=== PATIENT | male | born 1935 | race Caucasian/White ===

== ENCOUNTER 2016-07-19 12:48 | Observation (INO) | payer MEDICARE ==
[2016-07-19] MEDS ORDERED: SODIUM CHLORIDE 0.9% 500 ML IV ONE (12:57)
[2016-07-19] MEDS ORDERED: SODIUM CHLORIDE 0.9% 1,000 ML IV ONE (12:57)
--- NOTE | 2016-07-19 13:04 | ED ---
Altered Mental Status HPI - General Stated Complaint: Nonresponsive Time Seen by Provider: 07/19/16 12:57 Source: family, RN notes reviewed - History of Present Illness Initial Comments: This is a 80-year-old male with a history of Alzheimer's disease and MS with right-sided paralysis who is brought in by family and caregiver with the onset of decreased level of consciousness over last 1-2 hours. He had no history of diabetes he did have decrease oral intake today. No falls reported no fevers chills nausea vomiting sweats or other symptoms reported. MD Complaint: altered mental status, decreased responsiveness - Related Data Home Medications Medication Instructions Recorded Confirmed Baclofen [Lioresal] 10 mg PO BID 07/19/16 07/19/16 Cranberry Fruit Concentrate 450 mg PO DAILY 07/19/16 07/19/16 [Cranberry] Docusate [Colace] 100 mg PO DAILY PRN 07/19/16 07/19/16 LORazepam [Ativan] 0.5 mg PO TID PRN 07/19/16 07/19/16 Levothyroxine Sodium [Synthroid] 125 mcg PO DAILY 07/19/16 07/19/16 Lisinopril [Prinivil] 20 mg PO BID 07/19/16 07/19/16 Ranitidine HCl [Zantac] 300 mg PO DAILY 07/19/16 07/19/16 SILVER sulfADIAZINE CREAM 1 applic TOPICAL DAILY 07/19/16 07/19/16 [Silvadene Cream] Simvastatin [Zocor] 20 mg PO DAILY 07/19/16 07/19/16 Zinc 50 mg PO DAILY 07/19/16 07/19/16 carBAMazepine [TEGretol] 200 mg PO TID 07/19/16 07/19/16 tiZANidine [Zanaflex] 4 mg PO DAILY 07/19/16 07/19/16 Allergies Allergy/AdvReac Type Severity Reaction Status Date / Time No Known Allergies Allergy Verified 07/19/16 14:33 Review of Systems ROS Statement: Those systems with pertinent positive or pertinent negative responses have been documented in the HPI. ROS Other: All systems not noted in ROS Statement are negative. General Exam - General Exam Comments Initial Comments: This is a well-developed asthenic appearing male who was unresponsive was head lowered to the left. Limitations: altered mental status, physical limitation General appearance: obtunded Eye exam: Present: PERRL, EOMI, other (Some apparent deviation of left thigh to the left compared to the right eye.) Extremities exam: Present: normal capillary refill, other (Stigmata of right side paralysis). Absent: normal inspection, full ROM Back exam: Present: normal inspection Neurological exam: Present: altered Psychiatric exam: Present: other (Unable to evaluate) Skin exam: Present: warm, dry, intact, normal color. Absent: rash Course Vital Signs 07/19/16 07/19/16 07/19/16 12:58 13:35 14:26 Temperature 97.2 F L Pulse Rate 83 75 77 Respiratory 18 18 20 Rate Blood Pressure 139/77 161/87 156/74 O2 Sat by Pulse 95 94 L 99 Oximetry 07/19/16 15:45 Temperature 97.7 F Pulse Rate 91 Respiratory 18 Rate Blood Pressure 186/86 O2 Sat by Pulse 99 Oximetry - Reevaluation(s) Reevaluation #1: 07/19/16 13:03 I did assist nursing education consultant in place and the patient onto the emergency department stretcher from his wheelchair using a lifting device. Upon movement the patient did awaken respond. Accu-Chek was 120. Evaluation continues the patient is nonverbal Reevaluation #2: 07/19/16 16:55 Reevaluation patient reveals him to still be awake and alert not quite back to his norm per his family and caregiver. Medical Decision Making - Medical Decision Making I did discuss findings with the patient and family members patient be admitted for evaluation for syncope and elevated troponin. - Lab Data Result diagrams: 07/19/16 13:14 07/19/16 13:14 Lab Results 07/19/16 07/19/16 07/19/16 Range/Units 12:56 13:14 13:14 WBC 12.6 H (3.8-10.6) k/uL RBC 4.52 (4.30-5.90) m/uL Hgb 13.2 (13.0-17.5) gm/dL Hct 41.5 (39.0-53.0) % MCV 91.8 (80.0-100.0) fL MCH 29.2 (25.0-35.0) pg MCHC 31.9 (31.0-37.0) g/dL RDW 13.5 (11.5-15.5) % Plt Count 235 (150-450) k/uL Neutrophils % 83 % Lymphocytes % 11 % Monocytes % 4 % Eosinophils % 0 % Basophils % 1 % Neutrophils # 10.5 H (1.3-7.7) k/uL Lymphocytes # 1.4 (1.0-4.8) k/uL Monocytes # 0.5 (0-1.0) k/uL Eosinophils # 0.0 (0-0.7) k/uL Basophils # 0.1 (0-0.2) k/uL PT (9.0-12.0) sec INR (<1.1) APTT (22.0-30.0) sec Sodium (137-145) mmol/L Potassium (3.5-5.1) mmol/L Chloride (98-107) mmol/L Carbon Dioxide (22-30) mmol/L Anion Gap mmol/L BUN (9-20) mg/dL Creatinine (0.66-1.25) mg/dL Est GFR (MDRD) Af Amer (>60 ml/min/1.73 sqM) Est GFR (MDRD) Non-Af (>60 ml/min/1.73 sqM) Glucose (74-99) mg/dL POC Glucose (mg/dL) 120 H (75-99) mg/dL POC Glu Bander Operator ID Branch, Dereck Calcium (8.4-10.2) mg/dL Total Bilirubin (0.2-1.3) mg/dL AST (17-59) U/L ALT (21-72) U/L Alkaline Phosphatase (38-126) U/L Ammonia (<30) umol/L Total Creatine Kinase 31 L (55-170) U/L CK-MB (CK-2) 0.8 (0.0-2.4) ng/mL CK-MB (CK-2) Rel Index 2.6 Troponin I 0.042 H* (0.000-0.034) ng/mL Total Protein (6.3-8.2) g/dL Albumin (3.5-5.0) g/dL 07/19/16 07/19/16 07/19/16 Range/Units 13:14 13:14 13:14 WBC (3.8-10.6) k/uL RBC (4.30-5.90) m/uL Hgb (13.0-17.5) gm/dL Hct (39.0-53.0) % MCV (80.0-100.0) fL MCH (25.0-35.0) pg MCHC (31.0-37.0) g/dL RDW (11.5-15.5) % Plt Count (150-450) k/uL Neutrophils % % Lymphocytes % % Monocytes % % Eosinophils % % Basophils % % Neutrophils # (1.3-7.7) k/uL Lymphocytes # (1.0-4.8) k/uL Monocytes # (0-1.0) k/uL Eosinophils # (0-0.7) k/uL Basophils # (0-0.2) k/uL PT 10.6 (9.0-12.0) sec INR 1.1 (<1.1) APTT 23.7 (22.0-30.0) sec Sodium 144 (137-145) mmol/L Potassium 4.8 (3.5-5.1) mmol/L Chloride 108 H (98-107) mmol/L Carbon Dioxide 24 (22-30) mmol/L Anion Gap 12 mmol/L BUN 27 H (9-20) mg/dL Creatinine 1.06 (0.66-1.25) mg/dL Est GFR (MDRD) Af Amer >60 (>60 ml/min/1.73 sqM) Est GFR (MDRD) Non-Af >60 (>60 ml/min/1.73 sqM) Glucose 122 H (74-99) mg/dL POC Glucose (mg/dL) (75-99) mg/dL POC Glu Bander Operator ID Calcium 8.9 (8.4-10.2) mg/dL Total Bilirubin 0.8 (0.2-1.3) mg/dL AST 22 (17-59) U/L ALT 17 L (21-72) U/L Alkaline Phosphatase 98 (38-126) U/L Ammonia <9 (<30) umol/L Total Creatine Kinase (55-170) U/L CK-MB (CK-2) (0.0-2.4) ng/mL CK-MB (CK-2) Rel Index Troponin I (0.000-0.034) ng/mL Total Protein 7.5 (6.3-8.2) g/dL Albumin 3.6 (3.5-5.0) g/dL - EKG Data -: EKG Interpreted by Me EKG shows normal: sinus rhythm (Sinus rhythm rate of 72 first-degree AV block left axis deviation a bundle-branch block OR interval 224 QRS duration 150 QT/ QTC of 442/483 st-t wave changes) - Radiology Data Radiology results: report reviewed (I did review the imaging and reports no acute findings are seen.), image reviewed Disposition Clinical Impression: Syncope, Dementia, Elevated troponin, Dehydration Disposition: ADMITTED IP TO THIS [facility] Condition: Stable Referrals: Nonstaff,Physician [Primary Care Provider] - 1-2 days
[2016-07-19 13:07] LABS: Glucose,Whole Blood 120 mg/dL (75-99)
[2016-07-19 13:25] LABS: Basophils # (A) 0.1 k/uL (0-0.2); Basophils % (A) 1 %; CH 29.3; CHCM 32.1; Eosinophils % (A) 0 %; HCT 41.5 % (39.0-53.0); HDW 2.38; HGB 13.2 gm/dL (13.0-17.5); Luc # (Auto) 0.15; Luc % (Auto) 1; Lymphocytes # (A) 1.4 k/uL (1.0-4.8); Lymphocytes % (A) 11 %; MCH 29.2 pg (25.0-35.0); MCHC 31.9 g/dL (31.0-37.0); MCV 91.8 fL (80.0-100.0); Mean Platelet Volume 8.6; Monocytes # (A) 0.5 k/uL (0-1.0); Monocytes % (A) 4 %; Neutrophils # (A) 10.5 k/uL (1.3-7.7); Neutrophils % (A) 83 %; RBC 4.52 m/uL (4.30-5.90); RDW 13.5 % (11.5-15.5); WBC 12.6 k/uL (3.8-10.6); WBC (Perox) 12.84
--- NOTE | 2016-07-19 13:37 | CT ---
EXAMINATION TYPE: CT brain wo con DATE OF EXAM: 07/19/2016 1:31 PM COMPARISON: NONE HISTORY: Altered mental status. Unresponsiveness. CT DLP: 1029.90 mGycm Automated exposure control for dose reduction was used. FINDINGS: There is no acute intracranial hemorrhage, mass effect, or midline shift identified. The ventricles and sulci are prominent, there is marked cortical atrophy. Periventricular white matter shows patchy low attenuation, low attenuation also present within the linda compatible with chronic small vessel is chemia. There are extensive vascular calcifications The globes are intact and the visualized sinuses are remarkable for mild mucosal disease in the ethmoid air cells, maxillary sinuses and sphenoid. IMPRESSION: No acute intracranial hemorrhage, mass effect, or midline shift is seen. Age-related changes of atrop hy and chronic small vessel ischemia, consider brain MRI for better evaluation
[2016-07-19 13:49] LABS: Anion Gap 12 mmol/L; Calcium 8.9 mg/dL (8.4-10.2); Carbon Dioxide 24 mmol/L (22-30); Chloride 108 mmol/L (98-107); Glucose 122 mg/dL (74-99); Non-African American GFR(MDRD) >60 (>60 ml/min/1.73 sqM); Sodium 144 mmol/L (137-145); Total Bilirubin 0.8 mg/dL (0.2-1.3); Total Protein 7.5 g/dL (6.3-8.2)
[2016-07-19 13:55] LABS: ALT 17 U/L (21-72); AST 22 U/L (17-59); Alkaline Phosphatase 98 U/L (38-126); Blood Urea Nitrogen 27 mg/dL (9-20)
[2016-07-19 13:56] LABS: Potassium 4.8 mmol/L (3.5-5.1)
[2016-07-19 13:59] LABS: INR 1.1 (<1.1); Partial Thromboplastin Time 23.7 sec (22.0-30.0); Prothrombin Time 10.6 sec (9.0-12.0)
[2016-07-19 14:01] LABS: Creatine Kinase MB 0.8 ng/mL (0.0-2.4)
--- NOTE | 2016-07-19 14:01 | XR ---
EXAMINATION TYPE: XR chest 1V portable DATE OF EXAM: 07/19/2016 1:54 PM COMPARISON: NONE HISTORY: Altered mental status TECHNIQUE: Single frontal view of the chest is obtained. FINDINGS: Diffuse osteopenia. Arthropathy of the shoulders. No consolidation. Pleural-based thickeni ng noted. No interstitial edema. Hyperinflation suggests COPD. IMPRESSION: No acute process.
[2016-07-19 14:04] LABS: Troponin I 0.042 ng/mL (0.000-0.034)
[2016-07-19] MEDS ORDERED: DOCUSATE 100 MG CAP PO PRN (17:02)
--- NOTE | 2016-07-19 17:41 | US ---
EXAMINATION TYPE: US carotid duplex BILAT DATE OF EXAM: 07/19/2016 5:29 PM COMPARISON: NONE CLINICAL HISTORY: Stenosis. Altered mental status EXAM MEASUREMENTS: RIGHT: Peak Systolic Velocity (PSV) cm/sec ----- Right CCA: 73.2 ----- Right ICA: 255.1 ----- Right ECA: 201.4 ICA/CCA ratio: 3.5 RIGHT: End Diastole cm/sec ----- Right CCA: 15.6 ----- Right ICA: 74.0 ----- Right ECA: 46.2 LEFT: Peak Systolic Velocity (PSV) cm/sec ----- Left CCA: 61.9 ----- Left ICA: 142.0 ----- Left ECA: 143.8 ICA/CCA ratio: 2.3 LEFT: End Diastole cm/sec ----- Left CCA: 19.1 ----- Left ICA: 46.7 ----- Left ECA: 18.4 VERTEBRALS (direction of flow): Right Vertebral: Antegrade Left Vertebral: Antegrade No elevated velocities in RT ICA & ECA, and left ECA & ICA causing stenosis, right greater than left. Extensive shadowing plaque noted bilaterally. Grayscale images show moderate plaque in the right common carotid artery and severe plaque at right c arotid bulb. Increased peak systolic and end-diastolic velocities are seen in the right internal and external carotid arteries. Severe plaque is also seen on the left systolic velocity also identified i n left internal/external carotid arteries. IMPRESSION: Severe atherosclerotic change bilaterally with bilateral hemodynamically significant adam noses felt present bilateral internal carotid arteries , degree of stenosis is estimated greater adolfo n 70% on the right and 50-69% on the left. Further investigation with CTA or MRA of the neck is advis ed. Criteria for Assigning % of Stenosis / Diameter reduction (Estimation based on the indirect measurements of the internal carotid artery velocities (ICA PSV). 3. 50 to 69% stenosis=ICA PSV of 125 to 230 cm/s: ration 2.0 ? 4.0: ICA EDV 40-100 cm/s. 4. Greater than 70% stenosis to near occlusion= ICA PSV > 230 cm/s: ratio > 4.0: ICA EDV > 100 cm/s.
[2016-07-19] MEDS: LORazepam 0.5 MG TAB PO PRN (17:56)
--- NOTE | 2016-07-19 20:03 | P.CNNES ---
History of Present Illness Consult date: 07/19/16 History of Present Illness: The patient is an 80-year-old right-handed white male with multiple sclerosis. He is admitted to the hospital with unresponsive episode. ALLERGIES requested disease see the patient regarding altered mental status. History is obtained from the patient's caregiver and . Apparently the patient had been visiting a friend at [facility] and when the family was ready to leave they could not awaken the patient. It been sleeping all the way as it is normal for him to do when traveling but they thought he was just sleeping. When they're ready to leave matter large they could not arouse him despite vigorous attempts. He was then brought to the emergency room and apparently he awakened when the ER physician moved him. does not recall why he is on Tegretol and does not know of any history of seizures. He states that his MS has been prolonged and had to stop taking medication about 6 years ago because of the advancement of his MS. She states she was diagnosed with remitting relapsing MS and advised that he should stop the medication Copaxone. He has a history of memory loss which has worsened over the last 3 months. Over the last 3 months she's been more agitated. Review of Systems ROS unobtainable: due to mental status Past Medical History Past Medical History: Dementia, Hyperlipidemia, Hypertension, Thyroid Disorder Additional Past Medical History / Comment(s): MS, condom cath with leg bag- incontinence, right side paralysis, right arm contracture History of Any Multi-Drug Resistant Organisms: None Reported Past Surgical History: No Surgical Hx Reported Past Psychological History: No Psychological Hx Reported Smoking Status: Never smoker Past Alcohol Use History: None Reported Past Drug Use History: None Reported Medications and Allergies Home Medications Medication Instructions Recorded Confirmed Type Baclofen [Lioresal] 10 mg PO BID 07/19/16 07/19/16 History Cranberry Fruit Concentrate 450 mg PO DAILY 07/19/16 07/19/16 History [Cranberry] Docusate [Colace] 100 mg PO DAILY PRN 07/19/16 07/19/16 History LORazepam [Ativan] 0.5 mg PO TID PRN 07/19/16 07/19/16 History Levothyroxine Sodium [Synthroid] 125 mcg PO DAILY 07/19/16 07/19/16 History Lisinopril [Prinivil] 20 mg PO BID 07/19/16 07/19/16 History Ranitidine HCl [Zantac] 300 mg PO DAILY 07/19/16 07/19/16 History SILVER sulfADIAZINE CREAM 1 applic TOPICAL DAILY 07/19/16 07/19/16 History [Silvadene Cream] Simvastatin [Zocor] 20 mg PO DAILY 07/19/16 07/19/16 History Zinc 50 mg PO DAILY 07/19/16 07/19/16 History carBAMazepine [TEGretol] 200 mg PO TID 07/19/16 07/19/16 History tiZANidine [Zanaflex] 4 mg PO DAILY 07/19/16 07/19/16 History Allergies Allergy/AdvReac Type Severity Reaction Status Date / Time No Known Allergies Allergy Verified 07/19/16 14:33 Physical Examination - Vital Signs Vital Signs: Vital Signs Temp Pulse Resp BP Pulse Ox 07/19/16 18:15 183/86 07/19/16 17:47 98.2 F 82 18 191/86 99 - Constitutional General appearance: average body habitus - Respiratory Respiratory: lungs clear - Cardiovascular Cardiovascular: regular rate - Integumentary Integumentary: normal - Neurologic Neurologic examination patient was laying down and sleeping heavily but arousable with deep stimulation. He did become angry when awakened. Did receive sedation earlier of lorazepam. Evon in been agitated and he had been given lorazepam which is on his home medication list. He does have some increased appropriate on the left eye. Pulls were small and there was no obvious a facial asymmetry. Her examination reveals a right hemiparesis which is old according to his . This was attributed to his MS. Cranial nerve examination: face symmetric Results - Laboratory Findings CBC and BMP: 07/19/16 13:14 07/19/16 13:14 Abnormal Lab Findings: Abnormal Labs 07/19/16 18:47 Troponin I 0.044 H* Assessment and Plan (1) Episode of unresponsiveness Status: Acute Code(s): R41.89 - OTH SYMPTOMS AND SIGNS W COGNITIVE FUNCTIONS AND AWARENESS (2) Syncope Status: Acute Code(s): R55 - SYNCOPE AND COLLAPSE (3) Dehydration Status: Acute Code(s): E86.0 - DEHYDRATION (4) Relapsing remitting multiple sclerosis Status: Chronic Code(s): G35 - MULTIPLE SCLEROSIS (5) Dementia Status: Chronic Code(s): F03.90 - UNSPECIFIED DEMENTIA WITHOUT BEHAVIORAL DISTURBANCE Plan: The patient is an 80-year-old man with relapsing remitting MS and dementia who presents to the hospital with prolonged unresponsiveness. Patient is quite sleepy and does not easily aroused but with deeper stimulation he does awaken and appears angry. It is unclear whether the patient had an unresponsive episode versus syncopal event. His admitted to the hospital for further evaluation. Recommend checking an EEG. We'll also check a trough Tegretol level. As an outpatient patient recommend he be on a trial of Namenda for his Alzheimer's disease. He does have some carotid stenosis on the right this could be evaluated further as an outpatient. This could be a contributing factor to his unresponsive episode.
[2016-07-19] MEDS: LISINOPRIL 20 MG TAB PO SCH (20:37)
[2016-07-19] MEDS: BACLOFEN 10 MG TAB PO SCH (20:37)
[2016-07-19] MEDS: carBAMazepine 200 MG TAB PO SCH (20:37)
[2016-07-19] MEDS: SODIUM CHLORIDE 0.9% 1,000 ML IV SCH (20:38)
[2016-07-20 06:14] VITALS: TEMP 97.1
[2016-07-20] MEDS: SODIUM CHLORIDE 0.9% 1,000 ML IV SCH (06:16)
[2016-07-20] MEDS ORDERED: LEVOTHYROXINE 125 MCG TAB PO SCH (06:30)
[2016-07-20] MEDS ORDERED: NON-FORMULARY DRUG (Zinc [Zinc] 50 MG) PO SCH (09:00)
[2016-07-20] MEDS ORDERED: tiZANidine 4 MG TAB PO SCH (09:00)
[2016-07-20] MEDS ORDERED: ATORVASTATIN 10 MG TAB PO SCH (09:00)
[2016-07-20] MEDS ORDERED: FAMOTIDINE 20 MG TAB PO SCH (09:00)
[2016-07-20] MEDS: LISINOPRIL 20 MG TAB PO SCH (09:52)
[2016-07-20] MEDS: carBAMazepine 200 MG TAB PO SCH (09:52)
[2016-07-20] MEDS: BACLOFEN 10 MG TAB PO SCH (09:52)
[2016-07-20] MEDS: LORazepam 0.5 MG TAB PO PRN (09:59)
[2016-07-20 10:44] VITALS: BMI 21.2
[2016-07-20 15:15] LABS: Appearance,Urine Cloudy (Clear); Bacteria,Urine Rare /hpf; Bilirubin,Urine Negative (Negative); Glucose,Urine (UA) Negative (Negative); Ketones,Urine Trace (Negative); Leukocyte Esterase,Urine Small (Negative); Mucus,Urine Rare /hpf; Nitrite,Urine Negative (Negative); PH, Urine 5.5 (5.0-8.0); Particle Count 82428; Protein,Urine Trace (Negative); RBC,Urine 14 /hpf (0-5); Specific Gravity,Urine 1.016 (1.001-1.035); Squamous Epithelial Cell,Urine 13 /hpf (0-4); UA Billing (MACRO vs. MICRO) MICRO; WBC,Urine 12 /hpf (0-5)
[2016-07-20 16:53] LABS: Glucose,Whole Blood 91 mg/dL (75-99)
[2016-07-20 17:02] VITALS: BP 145/90; PULSE 87; RESP 20
--- NOTE | 2016-07-20 19:34 | HP ---
H&P AND DISCHARGE SUMMARY DATE OF ADMISSION: Patient is a pleasant 80-year-old gentleman with a history of multiple sclerosis, advanced dementia. As per Neurology, patient has Alzheimer's dementia. He came in with episode of prolonged unresponsive. Patient does not have any history of seizures. I am unable to get much of the history from the patient because of his advanced dementia. Apparently as per the family patient at this point of time is at baseline. Patient had a chest x-ray which did not show any pneumonic process. Patient does not have a UA. Patient has a condom catheter. I will obtain a UA and a TSH level. Patient is awake today and is at his baseline. EEG is being obtained. I am unable to assess orientation. Patient has contractures. Patient does have leukocytosis, mildly elevated troponins without any symptoms of chest pain. Normal EKG. Because of advanced dementia, family wants only conservative care; no aggressive measures at this point of time. EKG did show left bundle branch block. I do not know whether patient had an older EKG to compare with. Anyways, patient's family does not want any aggressive measures. Patient is on Ativan for agitation, which after discussion with the family I changed to Seroquel for agitational episodes rather than Ativan. I believe whenever he takes Ativan patient becomes excessively sleepy; that is what patient's family thought; patient was sleeping, but they could not arouse him despite vigorous attempts. Neurology evaluated the patient and they did obtain a carotid Doppler which showed 70% stenosis on one side and then 70% on the other side. Patient is also on tizanidine as well as baclofen and carbamazepine, all of which can cause significant sleepiness and altered mental status in people with advanced dementia and this age. After discussion with the family, I discontinued these 2 medications and patient's family wanted to take him back to his home, where it looks like they are taking good care of the patient. Patient will be discharged back today to home. REVIEW OF SYSTEMS: Unable to obtain due to his clinical condition. PAST MEDICAL HISTORY: 1. Dementia; appears to be advanced. 2. Hyperlipidemia. 3. Hypertension. 4. Hypothyroidism. SOCIAL HISTORY: Never a smoker. Denied any alcohol abuse or any drug abuse. FAMILY HISTORY: Unable to obtain. HOME MEDICATIONS: 1. Baclofen. 2. Docusate. 3. Lorazepam. 4. Levothyroxine. 5. Lisinopril. 6. Ranitidine. 7. Simvastatin. 8. Zinc. 9. Carbamazepine. 10. Tizanidine. ALLERGIES: NO KNOWN DRUG ALLERGIES. PHYSICAL EXAMINATION: VITAL SIGNS: Temperature 97.1, pulse of 82, respiratory rate of 18. Blood pressure is 102/52. Saturating at 98% on 2 L of oxygen by nasal cannula. GENERAL: Patient has chronic contractures. Patient is arousable. Unable to assess orientation. HEENT: Pupils are round and equally reacting to light. EOMI. No scleral icterus. No conjunctival pallor. Normocephalic, atraumatic. No pharyngeal erythema. No thyromegaly. CARDIOVASCULAR: S1 and S2 present. No murmurs, rubs, or gallops. PULMONARY: Chest is clear to auscultation, no wheezing or crackles. ABDOMEN: Soft, nontender, nondistended, normoactive bowel sounds. No palpable organomegaly. MUSCULOSKELETAL: No joint swelling or deformity. EXTREMITIES: No cyanosis, clubbing, or pedal edema. NEUROLOGICAL: No new focal neurological deficits were appreciated. Patient was evaluated by Neurology. Please refer to their documentation for further details. SKIN: No rashes. LABORATORY DATA: CBC, CMP are abnormal for elevated WBC count of 12,600. Troponins are negative. Tegretol level is a little bit subtherapeutic, but patient does not have any seizure history. CT of the head was reviewed. ASSESSMENT AND PLAN: 1. Altered mental status; can be multifactorial, most related to medications. Patient may have toxic encephalopathy from lorazepam, which will be changed to Seroquel, although Seroquel can cause a little bit of sleepiness as well. It is recommended to use Seroquel for agitational episodes rather than Ativan, which may actually worsen his cognitive function and worsen dementia. Baclofen may be contributing to it as well. 2. Patient's creatinine is elevated to 1.06. Probably that is contributing to his troponin elevation. Patient received IV fluid hydration here during hospitalization. 3. Multiple sclerosis. 4. Dementia. 5. Hypothyroidism. I will obtain a TSH level. 6. Hyperlipidemia. 7. Rule out sepsis. Will obtain a UA as well. My suspicion is low that patient is septic at this point of time. Patient will be discharged today. 8. CODE STATUS: DO NOT RESUSCITATE. NO AGGRESSIVE MEASURES. Elevated troponins are non-cardiac in nature, probably related to mild renal dysfunction. Patient's dementia appears to be advanced. This dictation is both H&P and discharge summary. Regarding hypertension, I will cut down his lisinopril from 20 mg b.i.d. to 10 mg daily. Patient will follow up with his primary care physician in 3 to 7 days. Activity as tolerated. Diet as tolerated. No aggressive measures. DO NOT RESUSCITATE.
--- NOTE | 2016-07-21 22:21 | EEG ---
DATE OF SERVICE: 07/20/2016 INDICATIONS FOR EXAMINATION: This patient is an 80 -year-old male being evaluated for syncope and collapse. The patient with an episode of unresponsiveness. The patient has history of underlying dementia. AGE: 80Y EEG FINDINGS: A routine 21 channel awake digital EEG recording was accomplished utilizing the 10-20 international system with bipolar and referential montages. The background activity in the most alert resting state consists of a low to medium amplitude, fairly well developed and well sustained 6-7 Hz activity over the posterior head regions. This posterior rhythm attenuates to eye opening. There is a small amount of low amplitude 18-20 Hz beta activity seen maximally over the anterior head regions. Muscle and movement artifact was observed on a few occasions during the tracing. Hyperventilation was not performed. Photic stimulation at flash frequencies of 2-30 Hz produced a minimal occipital driving response. Towards the latter portion of the tracing, the patient does drift into spontaneous drowsiness. No epileptiform discharges were seen. IMPRESSION: This EEG is mildly abnormal in a diffuse fashion due to slowing of the EEG background. The EEG failed to reveal any focal, lateralized, or epileptiform abnormalities. Clinical correlation is recommended.
== END 2016-07-20 17:56 | disposition home health service (06) ==
LOC: EC 12:48 → 6SEL 16:59
PROVIDERS: ADMIT Internal Medicine; ATTEND Internal Medicine
DX: R55 Syncope and collapse (principal); R41.82 Altered mental status, unspecified; E86.0 Dehydration; G35 Multiple sclerosis; Z79.899 Other long term (current) drug therapy; G30.9 Alzheimer's disease, unspecified; F02.80 Dementia in other diseases classified elsewhere, unspecified severity, without behavioral disturbance, psychotic disturbance, mood disturbance, and anxiety; R74.8 Abnormal levels of other serum enzymes; I10 Essential (primary) hypertension; E78.5 Hyperlipidemia, unspecified; E03.9 Hypothyroidism, unspecified; Z66 Do not resuscitate; G81.91 Hemiplegia, unspecified affecting right dominant side; D72.829 Elevated white blood cell count, unspecified; I65.21 Occlusion and stenosis of right carotid artery
CPT/HCPCS: 96360; 96361 ×3; 99285; 51798; 36415; 95819; 93005; 97161; 97166; 92610; 80156; 80053; 84443; 82140; 82550; 82553; 84484 ×2; 85025; 85610; 85730; 81001; 80306; 71010; 93880; 70450; G0378 ×2